=== PATIENT | male | born 1960 | race Caucasian/White ===

== ENCOUNTER 2020-11-06 09:30 | Outpatient (CLI) | payer OTHER, SELFPAY | END 2020-11-06 23:59 | disposition home or self-care (01) | LOC: MLB 09:30 → EDSTATUS 11-08 10:00 | PROVIDERS: ATTEND Internal Medicine Gastroenterology | DX: Z01.812 Encounter for preprocedural laboratory examination (principal); Z20.828 Contact with and (suspected) exposure to other viral communicable diseases; Z53.8 Procedure and treatment not carried out for other reasons ==